=== PATIENT | female | born 1955 | race Caucasian/White ===

== ENCOUNTER 2024-08-10 15:52 | Emergency (ER) | payer MEDICARE, SELFPAY ==
--- NOTE | ~2024-08-10 | XR_ITS ---
EXAMINATION: XR chest 2V DATE: 08/10/2024 16:21 INDICATION: Cough, wheezing and shortness of breath TECHNIQUE: PA and lateral views of the chest were obtained. COMPARISON: None FINDINGS: The lungs are clear with no focal airspace opacities, pulmonary edema, pleural effusion or pneumothor ax. The cardiomediastinal silhouette is normal. Mild thoracic spondylosis. Cholecystectomy clips in t he right upper quadrant. IMPRESSION: 1. No acute cardiopulmonary disease. Reviewed, dictated and finalized at location A. 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
--- NOTE | 2024-08-10 15:53 | ED.URI ---
HPI - URI/Sore Throat General Chief Complaint: Upper Respiratory Infection Stated Complaint: Cough Time Seen by Provider: 08/10/24 15:53 Source: patient Mode of arrival: ambulatory Limitations: no limitations History of Present Illness HPI Narrative: Konrad is a 69-year-old female patient presenting to the clinic today with complaints of a cough since . She reports she is asthmatic. 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 Was given prescription for steroids, 3 different antibiotics, and albuterol/Pulmicort solution. Patient was on azithromycin, Augmentin, and doxycycline. Doxycycline is the last antibiotic she was on started on July 18. She does feel short of breath more on exertion. Is coughing but not bringing up any phlegm. She is taking daily prednisone at 10 mg. No fever, chills, or body aches. MD elicited complaint: sore throat and nasal congestion Related Data Home Medications ?Medication ?Instructions ?Recorded ?Confirmed ?Last Taken ?Type albuterol sulfate 2.5 mg/3 mL mg 08/10/24 Unknown History (0.083 %) solution for nebulization atorvastatin 10 mg tablet mg 08/10/24 Unknown History budesonide 0.5 mg/2 mL suspension mg 08/10/24 Unknown History for nebulization citalopram 40 mg tablet mg 08/10/24 Unknown History famotidine 20 mg tablet mg 08/10/24 Unknown History levothyroxine 25 mcg tablet mcg 08/10/24 Unknown History montelukast 10 mg tablet mg 08/10/24 Unknown History prednisone 10 mg tablet mg 08/10/24 Unknown History propranolol 40 mg tablet mg 08/10/24 Unknown History Allergies Allergy/AdvReac Type Severity Reaction Status Date / Time No Known Allergies Allergy Verified 08/10/24 16:10 Review of Systems Review of Systems: Pertinent positives per HPI. Patient denies any fever, chills, rash, headache, visual changes, dizziness, cough, shortness of breath, chest pain, palpitations, nausea, vomiting, diarrhea, constipation, abdominal pain, or any urinary issues. PMFSH Comments At the time of my signature, I reviewed and agree with the nursing past medical, surgical, social, and family history. There is no relevant family history pertinent to the patient complaint. Exam Narrative: General: Well-developed, morbidly obese, in no apparent distress Head: Normocephalic, atraumatic Eyes: Pupils equally round and reactive to light bilaterally, EOM intact, sclera and conjunctive clear, no discharge, lids normal Ears: TMs intact and clear, ear canals clear, no drainage, grossly hearing normal. Nose: Nares patent, clear nasal discharge, no inflammation, no sinus tenderness. Mouth: Oral pharynx without lesions or masses, good dentition, MMM. Neck: Supple, trachea midline, no enlargement of anterior or posterior cervical nodes, no thyroid masses or goiter palpable. Cardio: Regular rate and rhythm, s1 and s2 normal, no murmur appreciated. Resp: Inspiratory wheezing with expiratory rhonchi, no rales, or rubs Course Course Emergency Course: Portions of this record may have been created with voice recognition software. Level of Care: Express Care Visit Vital Signs Vital signs: Vital Signs Temperature 37.0 C 08/10/24 16:03 Pulse Rate 74 08/10/24 16:03 Respiratory Rate 20 08/10/24 16:03 Blood Pressure 152/83 H 08/10/24 16:03 Pulse Oximetry 95 08/10/24 16:03 Temperature 37.0 C 08/10/24 16:03 Pulse Rate 74 08/10/24 16:20 Respiratory Rate 20 08/10/24 16:20 Blood Pressure 152/83 H 08/10/24 16:03 Pulse Oximetry 95 08/10/24 16:20 Oxygen Delivery Room Air 08/10/24 16:05 Vital signs reviewed MDM - URI/Sore Throat MDM Narrative Medical decision making narrative: At the time of visit patient is resting comfortably on the exam table. Patient appears to be nontoxic. Medications: DuoNeb treatment given in the clinic today and this improved patient's lung sounds. Diagnostics: Chest x-ray was performed is negative for any acute cardiopulmonary process. Plan: I suspect patient has asthma/bronchitis. Prescription for taper dose 10 day course of prednisone. Patient is not reporting any fever or sputum changes, chest x-rays negative for any pneumonia. Do not feels though she needs antibiotics at this time. Supportive measures were discussed with the patient and they voiced understanding discharge instructions and agrees to treatment plan. Return precautions reviewed Differential Diagnosis Differential diagnosis: Likely upper respiratory infection, otitis media, sinusitis, viral infection, bronchitis, influenza, pharyngitis and other (COVID) Discharge Plan Discharge Clinical Impression: Asthma exacerbation Qualifiers: Asthma severity: moderate Asthma persistence: persistent Qualified Code(s): J45.41 - Moderate persistent asthma with (acute) exacerbation Patient Disposition: Home, Self-Care Condition: Stable Instructions: Antibiotic Form, Asthma (ED) Additional Instructions: Chest x-rays negative for any acute cardiopulmonary process. DuoNeb HHN treatment was given in the clinic today Take prescription medications only as prescribed-taper dose prednisone Contact your distribution transformer assembler office tomorrow Increase fluids and stay well hydrated Tylenol/motrin for pain/fever Flonase and OTC antihistamines as directed Vicks vapor rub to open sinuses Sinus rinses for congestion Cepacol spray, cough drops, throat lozenges, warm tea with honey/lemon, gargle salt water to soothe throat BRAT diet for diarrhea Clear liquids x 24 hours then advance as tolerated for nausea/vomiting Go to the ED if you develop a worsening in your condition- high fever not controlled by Tylenol or Motrin, dehydration, weakness, lethargy, shortness of breath, or chest pain. Follow up with your PCP in 3-5 days if symptoms persist. Patient Language: Bulgarian Prescriptions: New prednisone 10 mg tablet 10 mg PO DAILY Qty: 30 0RF Rx Instructions: 60mg po daily on day 1, 40mg po daily on days 2-4, 30mg po daily on days 5-6, 20mg po daily on days 7-8, 10mg po daily on days 9-10 No Action prednisone 10 mg tablet albuterol sulfate 2.5 mg /3 mL (0.083 %) solution for nebulization citalopram 40 mg tablet atorvastatin 10 mg tablet levothyroxine 25 mcg tablet propranolol 40 mg tablet famotidine 20 mg tablet budesonide 0.5 mg/2 mL suspension for nebulization montelukast 10 mg tablet Follow-up/Referrals: UNKNOWN,DOCTOR [Non-Staff] - Time of Disposition: 16:48 Quality NIHSS Nursing Documentation ED NIHSS nursing documentation: reviewed/agree
[2024-08-10 16:03] VITALS: BP 152/83; PULSE 74; RESP 20; TEMP 37; O2SAT 95
[2024-08-10 16:20] VITALS: PULSE 74; RESP 20; O2SAT 95
[2024-08-10] MEDS: ALBUTEROL SULFATE NEB 2.5 MG/3 ML INH INHALATION (16:24)
[2024-08-10] MEDS: IPRATROPIUM BR 0.02% INH SOLN 0.5 MG/2.5 ML VIAL INHALATION (16:24)
[2024-08-10 16:48] VITALS: PULSE 76; RESP 21; O2SAT 93
== END 2024-08-10 16:56 | disposition home or self-care (01) ==
PROVIDERS: Emergency Provider Nurse Practitioner Family
DX: J45.41 Moderate persistent asthma with (acute) exacerbation (principal); I10 Essential (primary) hypertension; E78.00 Pure hypercholesterolemia, unspecified; J44.9 Chronic obstructive pulmonary disease, unspecified; E03.9 Hypothyroidism, unspecified; K21.9 Gastro-esophageal reflux disease without esophagitis
CPT/HCPCS: 71046; 94640; 99213; G0463

== ENCOUNTER 2024-11-13 17:28 | Emergency (ER) | payer MEDICARE, SELFPAY ==
--- NOTE | ~2024-11-13 | XR_ITS ---
CHEST RADIOGRAPH, PA AND LATERAL CLINICAL HISTORY: cough . COMPARISON: 08/10/2024 TECHNIQUE: PA and lateral views of the chest. FINDINGS The cardiomediastinal silhouette is unremarkable. The lungs are clear. IMPRESSION: No focal infiltrate or effusion. Reviewed, dictated and finalized at location A.
--- NOTE | 2024-11-13 17:30 | ED.URI ---
HPI - URI/Sore Throat General Chief Complaint: Upper Respiratory Infection Stated Complaint: Sore Throat/Cough/Asthma Source: patient and RN notes reviewed Mode of arrival: ambulatory Limitations: no limitations History of Present Illness HPI Narrative: Patient is a 69-year-old female who presents to the [facility] with multiple complaints. Patient states that she developed nasal congestion and drainage along with sinus pain and pressure yesterday. States that she has also been experiencing postnasal drip which is causing her to have a hoarse voice. She reports a frequent nonproductive cough that is occasionally productive. States that she has had intermittent wheezing. She reports history of asthma. Denies known fevers. Denies any known sick contacts. Her respirations are currently unlabored. She denies chest pain. Related Data Home Medications ?Medication ?Instructions ?Recorded ?Confirmed ?Last Taken ?Type albuterol sulfate 2.5 mg/3 mL mg 08/10/24 Unknown History (0.083 %) solution for nebulization atorvastatin 10 mg tablet mg 08/10/24 Unknown History budesonide 0.5 mg/2 mL suspension mg 08/10/24 Unknown History for nebulization citalopram 40 mg tablet mg 08/10/24 Unknown History famotidine 20 mg tablet mg 08/10/24 Unknown History levothyroxine 25 mcg tablet mcg 08/10/24 Unknown History montelukast 10 mg tablet mg 08/10/24 Unknown History prednisone 10 mg tablet mg 08/10/24 Unknown History propranolol 40 mg tablet mg 08/10/24 Unknown History albuterol sulfate 90 mcg/actuation inhalation 11/13/24 Unknown History aerosol inhaler Allergies Allergy/AdvReac Type Severity Reaction Status Date / Time No Known Allergies Allergy Verified 11/13/24 17:43 Review of Systems Review of Systems: CONSTITUTIONAL: Denies fever, chills, or sweats. EYES: Denies visual changes, redness, or discharge. ENT: Denies otalgia but reports sore throat, nasal congestion, postnasal drip, and sinus pressure. CARDIOVASCULAR: Denies chest pain, palpitations, or edema. RESPIRATORY: Reports cough but denies dyspnea. GASTROINTESTINAL: Denies abdominal pain, nausea, vomiting, or diarrhea. GENITOURINARY: Denies dysuria or hematuria. SKIN: Denies rash or itching. MUSCULOSKELETAL: Denies back pain, joint pain, but reports myalgia. NEUROLOGIC: Denies headache, numbness, or weakness. Pertinent positives per HPI. PMFSH Comments At the time of my signature, I reviewed and agree with the nursing past medical, surgical, social, and family history. There is no relevant family history pertinent to the patient complaint. Exam Narrative: GENERAL: This is a well-nourished, well-developed patient, in no apparent distress. HEAD: normocephalic, atraumatic. EYES: Sclera clear/white. Vision is grossly intact. EARS: External ears normal. Hearing grossly intact. NOSE: External nose normal. + congestion. + sinus tenderness. THROAT: Mucous membranes moist, oropharyngeal erythema without exudate or ulceration. NECK: Neck supple, non-tender without lymphadenopathy, masses or thyromegaly. CARDIOVASCULAR: Regular rate and rhythm without murmurs, gallops, or rubs. RESPIRATORY: Lung sounds coarse bilaterally. GASTROINTESTINAL: Abdomen soft, non-tender, nondistended. Bowel sounds are active. No hepato-splenomegaly, or palpable masses. No guarding. SKIN: warm, intact with no suspicious lesions or rash, good texture and turgor. NEURO: awake, alert, and oriented to person, place and time. There were no obvious focal neurologic abnormalities. Course Course Level of Care: Express Care Visit Vital Signs Vital signs: Vital Signs Temperature 97.4 F L 11/13/24 17:44 Pulse Rate 79 11/13/24 17:44 Respiratory Rate 16 11/13/24 17:44 Blood Pressure 171/87 H 11/13/24 17:44 Pulse Oximetry 96 11/13/24 17:44 Temperature 97.4 F L 11/13/24 17:44 Pulse Rate 79 11/13/24 17:44 Respiratory Rate 16 11/13/24 17:44 Blood Pressure 171/87 H 11/13/24 17:44 Pulse Oximetry 96 11/13/24 17:44 Oxygen Delivery Room Air 11/13/24 17:45 Reviewed MDM - URI/Sore Throat MDM Narrative Medical decision making narrative: Take steroids as directed. Increase fluids at home. Avoid any and all smoke. May use a humidifier in the bedroom. Increase your Vitamin C. Follow-up with personal physician in 2-5 days. Differential Diagnosis Differential diagnosis: Likely upper respiratory infection, sinusitis, viral infection, bronchitis, pharyngitis and other ( Strep, covid, pneumonia) Lab Data Attestation: I reviewed the patient's lab results. Labs: Lab Results 11/13/24 Range/Units 18:11 POC Influenza A Ag Negative (Negative) POC Influenza B Ag Negative (Negative) POC SARS CoV-2 Ag Negative (Negative) POC Grp A Strep Screen Negative (Negative) Imaging Data Attestation: I personally reviewed and interpreted this imaging study as follows: Radiologist's impression: [address] [place] [address] XRay Report Signed Patient: Konrad Dejesus : 1955 MR#: [id number] Age: 69 Acct:[id number] Loc: [facility] ADM Date: 11/13/24Attending Dr: Ordering Physician: Dianelys Alvarez APRN Date of Service: 11/13/24 Procedure(s): XR chest 2V Accession Number(s): [id number] cc: Dianelys Alvarez APRN; WOOD MODEL MAKER PHYSICIAN~ CHEST RADIOGRAPH, PA AND LATERAL CLINICAL HISTORY: cough . COMPARISON: 08/10/2024 TECHNIQUE: PA and lateral views of the chest. FINDINGS The cardiomediastinal silhouette is unremarkable. The lungs are clear. IMPRESSION: No focal infiltrate or effusion. Reviewed, dictated and finalized at location A. Please be advised this is a medical document. It is intended for [id number] communication. It is written in medical language and may contain unfamiliar abbreviations or verbiage. Medical documents are intended to carry relevant information, facts as evident, and the clinical opinion of the practitioner at the time of the encounter. This report may have been done utilizing a voice recognition system. Attempts have been made to correct errors. However, there may be uncorrected grammatical, spelling, and recognition errors present. The file time of this note does not necessarily represent the time of service. Dictated By: Afshan Olvera MD 11/13/241809 Signed By: <Electronically signed by Afshan Olvera MD in [place]> 11/13/241810 Critical Care Time Critical Care Time Critical Care Time: No Discharge Plan Discharge Clinical Impression: Acute viral bronchitis Patient Disposition: Home Condition: Stable Instructions: Acute Bronchitis (ED) Additional Instructions: Take steroids as directed. Increase fluids at home. Avoid any and all smoke. May use a humidifier in the bedroom. Increase your Vitamin C. Follow-up with personal physician in 2-5 days. Patient Language: Vietnamese Prescriptions: New prednisone 50 mg tablet 50 mg PO DAILY 5 Days Qty: 5 0RF fluticasone propionate [Flonase Allergy Relief] 50 mcg/actuation spray,suspension 1 spray intranasal BID Qty: 16 0RF Rx Instructions: administer into each nostril No Action albuterol sulfate 90 mcg/actuation HFA aerosol inhaler INHALATION prednisone 10 mg tablet albuterol sulfate 2.5 mg /3 mL (0.083 %) solution for nebulization citalopram 40 mg tablet atorvastatin 10 mg tablet levothyroxine 25 mcg tablet propranolol 40 mg tablet famotidine 20 mg tablet budesonide 0.5 mg/2 mL suspension for nebulization montelukast 10 mg tablet prednisone 10 mg tablet 10 mg PO DAILY Qty: 30 0RF Rx Instructions: 60mg po daily on day 1, 40mg po daily on days 2-4, 30mg po daily on days 5-6, 20mg po daily on days 7-8, 10mg po daily on days 9-10 Follow-up/Referrals: UNKNOWN,DOCTOR [Non-Staff] - Time of Disposition: 18:18
[2024-11-13 17:44] VITALS: BP 171/87; PULSE 79; RESP 16; TEMP 36.3; O2SAT 96
[2024-11-13 18:14] LABS: EDCOVIDSCREEN Negative (Negative); EDINFLUASCREEN Negative (Negative); EDINFLUBSCREEN Negative (Negative); EDSTREPNEGPOS1 Negative (Negative)
== END 2024-11-13 18:21 | disposition home or self-care (01) ==
PROVIDERS: Emergency Provider Nurse Practitioner
DX: J20.8 Acute bronchitis due to other specified organisms (principal); Z20.822 Contact with and (suspected) exposure to COVID-19; J45.909 Unspecified asthma, uncomplicated
CPT/HCPCS: 71046; 87081; 87426; 87804; 87880; 99213; G0463

== ENCOUNTER 2025-04-02 13:35 | Emergency (ER) | payer MEDICARE, SELFPAY ==
[2025-04-02 13:54] VITALS: BP 159/79; PULSE 76; RESP 16; TEMP 35.9; O2SAT 95
[2025-04-02 14:05] LABS: EDCOVIDSCREEN Positive (Negative); EDINFLUASCREEN Negative (Negative); EDINFLUBSCREEN Negative (Negative)
--- NOTE | 2025-04-02 14:11 | ED.URI ---
HPI - URI/Sore Throat General Chief Complaint: Upper Respiratory Infection Stated Complaint: possible asthma flare up or Flu Time Seen by Provider: 04/02/25 14:01 Source: patient and RN notes reviewed Mode of arrival: ambulatory Limitations: no limitations History of Present Illness HPI Narrative: 69-year-old female patient with history of hypertension, asthma, COPD, high cholesterol, presents today a 2 day history of cough, rhinorrhea, body aches, headache. Wheezing started last night. She also reports some shortness of breath that is mildly worse than baseline. She has tried DayQuil and NyQuil with some mild relief. She is also using albuterol nebulizer treatments at least twice daily. She has not used 1 today. Related Data Home Medications ?Medication ?Instructions ?Recorded ?Confirmed ?Last Taken ?Type albuterol sulfate 2.5 mg/3 mL 2.5 mg continuous nebulization 08/10/24 Unknown History (0.083 %) solution for nebulization atorvastatin 10 mg tablet 10 mg PO DAILY 08/10/24 04/02/25 Unknown History budesonide 0.5 mg/2 mL suspension 0.25 mg 08/10/24 Unknown History for nebulization citalopram 40 mg tablet 40 mg PO DAILY 08/10/24 04/02/25 Unknown History famotidine 20 mg tablet 20 mg PO DAILY 08/10/24 04/02/25 Unknown History levothyroxine 25 mcg tablet 25 mcg PO DAILY 08/10/24 04/02/25 Unknown History montelukast 10 mg tablet 10 mg PO DAILY 08/10/24 04/02/25 Unknown History propranolol 40 mg tablet 40 mg PO 08/10/24 Unknown History albuterol sulfate 90 mcg/actuation inhalation 11/13/24 Unknown History aerosol inhaler Allergies Allergy/AdvReac Type Severity Reaction Status Date / Time No Known Allergies Allergy Verified 11/13/24 17:43 [facility] Past Medical History Medical History (Updated 04/02/25 @ 14:16 by Caroline Castellano, [facility], ) GERD (gastroesophageal reflux disease) Hypothyroidism High cholesterol Hypertension COPD (chronic obstructive pulmonary disease) Asthma Comments At time of signature, I have reviewed and agree with nursing past medical, surgical, social and family history unless otherwise noted. Please see nursing chart for further information. There is no relevant family history pertinent to the presenting complaint Exam Narrative: GENERAL: Acute on chronically ill-appearing, well-nourished, and in no acute distress. HEAD: Normocephalic, atraumatic. EYES: EOMI. No redness or drainage. Conjunctivae normal. ENT: Mucous membranes pink and moist. Nares mildly congested. No rhinorrhea. TMs normal bilaterally. Throat normal. Uvula midline. NECK: Normal AROM. Supple. No lymphadenopathy. CHEST: No respiratory distress. Expiratory wheezing throughout. Harsh cough noted. HEART: Regular rate and rhythm. No murmur appreciated. EXTREMITIES: Normal range of motion. No edema. SKIN: Warm, dry, no rash. Capillary refill normal. Normal skin turgor. NEURO: No focal deficits. Alert and oriented x3. Gait steady. PSYCH: Normal affect. No signs of depression or anxiety. Course Course Level of Care: Express Care Visit Vital Signs Vital signs: Vital Signs Temperature 96.7 F L 04/02/25 13:54 Pulse Rate 76 04/02/25 13:54 Respiratory Rate 16 04/02/25 13:54 Blood Pressure 159/79 H 04/02/25 13:54 Pulse Oximetry 95 04/02/25 13:54 Temperature 96.7 F L 04/02/25 13:54 Pulse Rate 76 04/02/25 13:54 Respiratory Rate 16 04/02/25 13:54 Blood Pressure 159/79 H 04/02/25 13:54 Pulse Oximetry 95 04/02/25 13:54 Reviewed MDM - URI/Sore Throat MDM Narrative Medical decision making narrative: 69-year-old female patient with history of hypertension, asthma, COPD, high cholesterol, presents today a 2 day history of cough, rhinorrhea, body aches, headache. Wheezing started last night. She also reports some shortness of breath that is mildly worse than baseline. She has tried DayQuil and NyQuil with some mild relief. Upon exam, expiratory wheezing throughout with harsh cough and mild nasal congestion. Patient is acute on chronically ill-appearing. Negative influenza. Positive COVID-19 test. She would like to try rx for Paxlovid. Will also prescribe some prednisone for her wheezing and shortness of breath. She has been instructed to stop her atorvastatin due to contraindication with the Paxlovid. She will continue her albuterol nebulizer treatments as prescribed. Strict ED precautions and anticipatory guidance given. Differential Diagnosis Differential diagnosis: Likely upper respiratory infection, viral infection, influenza and other (COVID-19, pneumonia) Lab Data Attestation: I reviewed the patient's lab results. Labs: Lab Results 04/02/25 Range/Units 13:48 POC Influenza A Ag Negative (Negative) POC Influenza B Ag Negative (Negative) POC SARS CoV-2 Ag Positive (Negative) Critical Care Time Critical Care Time Critical Care Time: No Discharge Plan Discharge Clinical Impression: COVID-19 Asthma exacerbation Qualifiers: Asthma severity: unspecified severity Asthma persistence: unspecified Qualified Code(s): J45.901 - Unspecified asthma with (acute) exacerbation Patient Disposition: Home Condition: Stable Instructions: COVID-19 (Coronavirus Disease 2019) (ED) Additional Instructions: You have been diagnosed with COVID-19. Please take the Paxlovid and prednisone as prescribed. Please stop your atorvastatin for the 5 days of your Paxlovid prescription, then restart it. You may continue [id number] medications such as DayQuil or NyQuil. Please continue your albuterol nebulizer treatments as prescribed for your cough and wheezing. As discussed, if your symptoms worsen, please go to the ER immediately for further evaluation. Patient Language: Salvadorean Prescriptions: New prednisone 20 mg tablet 40 mg PO DAILY 5 Days Qty: 10 0RF Paxlovid 300 mg (150 mg x 2)-100 mg tablets,dose pack See Rx Instructions .ROUTE .COMPLEX Qty: 30 0RF Rx Instructions: take TWO 150 mg tablets of nirmatrelvir with ONE 100 mg tablet of ritonavir twice daily for 5 days No Action albuterol sulfate 90 mcg/actuation HFA aerosol inhaler INHALATION fluticasone propionate [Flonase Allergy Relief] 50 mcg/actuation spray,suspension 1 spray intranasal BID Qty: 16 0RF Rx Instructions: administer into each nostril albuterol sulfate 2.5 mg /3 mL (0.083 %) solution for nebulization 2.5 mg continuous nebulization citalopram 40 mg tablet 40 mg PO DAILY atorvastatin 10 mg tablet 10 mg PO DAILY levothyroxine 25 mcg tablet 25 mcg PO DAILY propranolol 40 mg tablet 40 mg PO famotidine 20 mg tablet 20 mg PO DAILY budesonide 0.5 mg/2 mL suspension for nebulization 0.25 mg montelukast 10 mg tablet 10 mg PO DAILY Follow-up/Referrals: UNKNOWN,DOCTOR [Primary Care Provider] Time of Disposition: 14:18
== END 2025-04-02 14:27 | disposition home or self-care (01) ==
PROVIDERS: Emergency Provider Nurse Practitioner
DX: U07.1 COVID-19 (principal); J45.901 Unspecified asthma with (acute) exacerbation; I10 Essential (primary) hypertension; E03.9 Hypothyroidism, unspecified; E78.00 Pure hypercholesterolemia, unspecified; J44.9 Chronic obstructive pulmonary disease, unspecified; K21.9 Gastro-esophageal reflux disease without esophagitis
CPT/HCPCS: 87426; 87804; 99213; G0463

== ENCOUNTER 2025-06-20 10:43 | Emergency (ER) | payer MEDICARE, SELFPAY ==
[2025-06-20 11:04] VITALS: BP 177/93; PULSE 76; RESP 16; TEMP 36.3; O2SAT 96
--- NOTE | 2025-06-20 11:36 | ED_ITS ---
HPI - Eye Problem General Chief complaint: Eye Problems Stated complaint: L eye swollen Time Seen by Provider: 06/20/25 11:36 Source: patient Mode of arrival: ambulatory Limitations: no limitations History of Present Illness HPI Narrative: 69-year-old female presented for complaint of eye redness, swelling, and tearing. Onset today. Endorses yesterday both eyes felt irritated. Says today the left eye feels like presented with some pressure. Endorses similar symptoms approx 4 times in the past few years, which she attributed to using cpap. However she has not used cpap in 4 days. She denies vision changes, photophobia, headache or dizziness. Does not wear contact lenses. chief complaint: eye pain Related Data Home Medications ?Medication ?Instructions ?Recorded ?Confirmed ?Last Taken ?Type albuterol sulfate 2.5 mg/3 mL 2.5 mg continuous nebuli zation 08/10/24 Unknown History (0.083 %) solution for nebulization atorvastatin 10 mg tablet 10 mg PO DAILY 08/10/2405/26 Unknown History budesonide 0.5 mg/2 mL suspension 0.25 mg 08/10/24 Un known History for nebulization citalopram 40 mg tablet 40 mg PO DAILY 08/10/2405/26 Unknown History famotidine 20 mg tablet 20 mg PO DAILY 08/10/2403/19 Unknown History levothyroxine 25 mcg tablet 25 mcg PO DAILY 08/10/24 1 08/21/24 Unknown History montelukast 10 mg tablet 10 mg PO DAILY 08/10/2405/26 Unknown History propranolol 40 mg tablet 40 mg PO 08/10/24 Unknown H istory albuterol sulfate 90 mcg/actuation inhalation 11/13/24 Unknown History aerosol inhaler famotidine PO 06/20/25 Unknown History fluticasone fur. 200 mcg-umeclid inhalation 06/20/25 Unknown History 62.5 mcg-vilant 25 mcg inhalat.powder (Trelegy Ellipta) omeprazole 40 mg capsule,delayed mg 06/20/25 Unknown History release Allergies Allergy/AdvReac Type Severity Reaction Status Date / Time No Known Allergies Allergy Verified 06/20/25 11:24 Review of Systems Review of Systems: CONSTITUTIONAL: Denies body aches, fever, chills EYES:Endorses swelling, redness and pain to left eye; FB sensation, Denies visual changes photophobia ENT: Denies rhinorrhea, congestion, sore throat, or otalgia. CARDIOVASCULAR: Denies chest pain, palpitations RESPIRATORY: Denies cough or dyspnea. GASTROINTESTINAL: Denies abdominal pain, nausea, vomiting, or diarrhea. SKIN: Denies rash, itching, or wounds. MUSCULOSKELETAL: Denies back pain, joint pain, or myalgia. NEUROLOGIC: Denies headache, numbness, tingling, or weakness. All systems reviewed & are unremarkable except as noted in HPI and below [facility] Past Medical History Medical History GERD (gastroesophageal reflux disease) Hypothyroidism High cholesterol Hypertension COPD (chronic obstructive pulmonary disease) Asthma Comments At time of signature, I have reviewed and agree with nursing past medical, surgical, social and family history unless otherwise noted. Please see nursing chart for further information. There is no relevant family history pertinent to the presenting complaint Exam Narrative: GENERAL: Well-appearing HEAD: Normocephalic, atraumatic. EYES: left conjunctival injection, mild eye lid swelling/redness, mild chemosis, mild tearing.PERRLA EOMI. Lid eversion Shows no foreign body. Morales lamp exam shows no abrasion/ulceration ENT: Mucous membranes pink and moist. No rhinorrhea. TMs normal bilaterally. Throat normal. Uvula midline. SKIN: Warm, dry, no rash. Normal skin turgor. NEURO: No focal deficits. Alert and oriented x3 PSYCH: Normal affect. Course Course Level of Care: Express Care Visit Vital Signs Vital signs: Vital Signs Temperature 97.3 F L 06/20/25 11:04 Pulse Rate 76 06/20/25 11:04 Respiratory Rate 16 06/20/25 11:04 Blood Pressure 177/93 H 06/20/25 11:04 Pulse Oximetry 96 06/20/25 11:04 Temperature 97.3 F L 06/20/25 11:04 Pulse Rate 76 06/20/25 11:04 Respiratory Rate 16 06/20/25 11:04 Blood Pressure 177/93 H 06/20/25 11:04 Pulse Oximetry 96 06/20/25 11:04 Procedures FB Removal Eye Foreign Body #1: Foreign Body Removal Date: 12/27/25 Location: eye (L) Topical anesthetic used: tetracaine Evidence of corneal penetration: No Foreign Body Removal Narrative: left eye was anesthetized with 1 drop of tetracaine and anesthesia was achieved. Lid was everted and examined for foreign body. No foreign body, corneal abrasion, or ulceration identified with Morales lamp. The eye was flushed with eye wash. Pt tolerated procedure well. MDM MDM Narrative Medical decision making narrative: Discussed physical exam findings; no apparent corneal abrasion ulcer identified with Wood's lamp exam. will send antibiotic drops and advised to follow-up Advised supportive measures and signs/symptoms to go to the ER. Pt is appropriate for outpt treatment and f/u. Differential Diagnosis Differential Diagnosis: allergic reaction, urticaria, angioedema, dermatitis, cellulitis, blepharitis, stye, dacryoadenitis, conjunctivitis, uveitis Discharge Plan Discharge Clinical Impression: Conjunctivitis Patient Disposition: Home Condition: Stable Instructions: Antibiotic Form, Conjunctivitis (ED) Additional Instructions: Avoid touching or rubbing your eye. Use over the counter lubricating eye drops as needed for irritation Use a warm or cool washcloth on your eye for comfort Use eyedrops as directed Practice good handwashing and hygiene to prevent spread of infection Use new makeup, lashes etc. 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 Go to the emergency room if you have severe pain or pressure behind your eye, difficulty seeing, or other severe symptoms [facility] [phone] [facility] [phone] [facility] [phone] [facility] [phone] Patient Language: Taiwanese Prescriptions: New polymyxin B sulf-trimethoprim 10,000 unit- 1 mg/mL drops 1 drp LEFT EYE Q4HWA 7 Days Qty: 10 0RF Rx Instructions: while awake; do not exceed 6 doses in 24 hours No Action albuterol sulfate 90 mcg/actuation HFA aerosol inhaler INHALATION fluticasone propionate [Flonase Allergy Relief] 50 mcg/actuation spray,suspension 1 spray intranasal BID Qty: 16 0RF Rx Instructions: administer into each nostril omeprazole 40 mg capsule,delayed release(DR/EC) Trelegy Ellipta 200-62.5-25 mcg blister with device INHALATION famotidine [Pepcid] PO albuterol sulfate 2.5 mg /3 mL (0.083 %) solution for nebulization 2.5 mg continuous nebulization citalopram 40 mg tablet 40 mg PO DAILY atorvastatin 10 mg tablet 10 mg PO DAILY levothyroxine 25 mcg tablet 25 mcg PO DAILY propranolol 40 mg tablet 40 mg PO famotidine 20 mg tablet 20 mg PO DAILY budesonide 0.5 mg/2 mL suspension for nebulization 0.25 mg montelukast 10 mg tablet 10 mg PO DAILY Follow-up/Referrals: UNKNOWN,DOCTOR [Primary Care Provider] Time of Disposition: 12:12
[2025-06-20] MEDS: TETRACAINE HCL 0.5% OPHTH SOLN 4 ML BTL AFFCTD EYE (11:47)
[2025-06-20] MEDS: FLUORESCEIN SOD 1 MG/STRIP AFFCTD EYE (11:47)
[2025-06-20] MEDS: DACRIOSE EYE IRRIGATION 118 ML BOTTLE AFFCTD EYE (11:48)
== END 2025-06-20 12:15 | disposition home or self-care (01) ==
PROVIDERS: Emergency Provider Nurse Practitioner Family
DX: H10.9 Unspecified conjunctivitis (principal); I10 Essential (primary) hypertension; E78.00 Pure hypercholesterolemia, unspecified; E03.9 Hypothyroidism, unspecified; K21.9 Gastro-esophageal reflux disease without esophagitis; J44.9 Chronic obstructive pulmonary disease, unspecified
CPT/HCPCS: 99213; A9270; G0463